=== PATIENT | male | born 1945 | race Caucasian/White ===

== ENCOUNTER 2019-07-20 11:44 | Observation (INO) ==
[2019-07-20] MEDS ORDERED: Isovue-370 500 ML BOTTLE IVP ONE (12:09)
[2019-07-20] MEDS ORDERED: Aspirin 81 MG TAB.CHEW PO ONE (12:10)
[2019-07-20 12:24] LABS: Basophils % 0.4 %; Eosinophils # 0.5 K/mcL (0.0-0.6); Eosinophils % 5.3 %; Hematocrit 43.4 % (37.5-50.1); Hemoglobin 14.4 g/dL (12.9-16.9); Immature Granulocytes % 0.8 % (0-4); Lymphocytes # 2.1 K/mcL (0.6-4.6); Lymphocytes % 22.9 %; Mean Corpuscular HGB Conc 33.2 g/dL (31.6-35.5); Mean Corpuscular Hemoglobin 30.4 pg (28.0-33.3); Mean Corpuscular Volume 91.6 fL (83.0-100.0); Mean Platelet Volume 9.9 fL (9.4-12.4); Monocytes # 0.9 K/mcL (0.0-1.3); Monocytes % 9.4 %; Neutrophils # 5.6 K/mcL (1.6-8.9); Platelet Count 272 K/mcL (140-400); Red Blood Count 4.74 M/mcL (4.19-5.50); Segmented Neutrophils % 61.2 %; White Blood Count 9.1 K/mcL (4.3-11.1)
[2019-07-20 12:26] LABS: INR 1.4; Prothrombin Time 16.1 Seconds (9.4-12.1)
[2019-07-20 12:28] LABS: Activated Partial Thrombo Time 35.9 Seconds (26.0-36.0)
[2019-07-20 12:39] LABS: Bilirubin,Urine Small (Negative); Blood,Urine Negative (Negative); Glucose,Urine (UA) Normal (Normal); Ketones,Urine Trace mg/dL (Negative); Leukocyte Esterase,Urine Trace (Negative); Nitrite,Urine Negative (Negative); Protein,Urine 30 mg/dL (Neg-Trace); Specific Gravity,Urine 1.026 (1.010-1.025); Urobilinogen,Urine Normal (Normal)
[2019-07-20 12:40] LABS: Bacteria,Urine None Seen per hpf (None-Few); RBC,Urine 0-3 per hpf (0-3); Squamous Epithelial Cell,Urine Many per lpf (None-Few)
[2019-07-20 12:43] LABS: Alanine Aminotransferase 13 Units/L (7-52); Albumin 3.9 g/dL (3.5-5.7); Albumin/Globulin Ratio 1.3 (1.1-2.2); Alkaline Phosphatase 104 Units/L (34-104); Aspartate Amino Transferase 16 Units/L (13-39); BUN/Creatinine Ratio 14 (6-26); Bilirubin,Direct 0.2 mg/dL (0.0-0.2); Bilirubin,Indirect 0.4 mg/dL (0.0-1.0); Bilirubin,Total 0.6 mg/dL (0.3-1.0); Blood Urea Nitrogen 19 mg/dL (8-23); Calcium 8.9 mg/dL (8.6-10.3); Carbon Dioxide 27 mEq/L (23-29); Chloride 100 mEq/L (98-107); Globulin 3.1 g/dL (2.4-3.5); Glucose 126 mg/dL (70-105); Lipase 5 Units/L (11-82); Osmolality,Calculated 286 (280-300); Potassium 4.1 mEq/L (3.5-5.1); Sodium 136 mEq/L (136-145); Troponin I < 0.03 ng/mL (< 0.04); eGFR For African Americans > 60 (> 60); eGFR For Non-African Americans 52 (> 60)
[2019-07-20 12:44] LABS: Color,Urine Yellow (Yellow)
[2019-07-20 12:45] LABS: Clarity,Urine Slightly Hazy (Clear)
[2019-07-20 12:52] LABS: Hyaline Casts,Urine Few per lpf (None-Few); Mucus,Urine Moderate (Few)
[2019-07-20] MEDS ORDERED: *HR* OxyCODONE/APAP 5/325 TABLET PO ONE (13:24)
[2019-07-20] MEDS ORDERED: Piperacillin/Tazobactam 3.375 GM in 0.9 % Sodium Chloride Mini Bag 100 ML IVPB ONE (13:49)
[2019-07-20] MEDS ORDERED: Morphine Sulfate 2 MG/ML SYRINGE IVP ONE (15:35)
[2019-07-20] MEDS ORDERED: *HR* FentaNYL (PF) 100 MCG/2 ML VIAL IVP ONE (15:40)
[2019-07-20] MEDS ORDERED: Naloxone 0.4 MG/ML INJ IVP PRN (15:43)
[2019-07-20] MEDS: Cholecalciferol (D-3) 1,000 UNIT (25MCG) TABLET PO SCH (20:05)
[2019-07-20] MEDS ORDERED: traZODone 50 MG TABLET PO SCH (21:00)
[2019-07-20] MEDS ORDERED: rOPINIRole 1 MG TABLET PO SCH (21:00)
[2019-07-20] MEDS ORDERED: ARIPiprazole 2 MG TABLET PO SCH (21:00)
[2019-07-20] MEDS ORDERED: *HR* OxyCODONE Immed Rel 15 MG TABLET PO ONE (21:30)
[2019-07-20] MEDS: Piperacillin/Tazobactam 3.375 GM in 0.9 % Sodium Chloride Mini Bag 100 ML IVPB SCH (23:50)
[2019-07-20] MEDS ORDERED: Acetaminophen IV 500 MG/50 ML INFUS..BTL IVPB ONE (23:54)
[2019-07-21 02:17] LABS: Basophils % 0.5 %; Eosinophils # 0.4 K/mcL (0.0-0.6); Eosinophils % 7.3 %; Lymphocytes # 1.4 K/mcL (0.6-4.6); Lymphocytes % 22.9 %; Mean Corpuscular HGB Conc 32.5 g/dL (31.6-35.5); Mean Corpuscular Hemoglobin 29.8 pg (28.0-33.3); Mean Corpuscular Volume 91.7 fL (83.0-100.0); Mean Platelet Volume 10.6 fL (9.4-12.4); Monocytes # 0.6 K/mcL (0.0-1.3); Monocytes % 10.2 %; Neutrophils # 3.5 K/mcL (1.6-8.9); Platelet Count 258 K/mcL (140-400); Red Blood Count 4.36 M/mcL (4.19-5.50); Red Cell Distribution Width 14.2 % (11.5-14.5); Segmented Neutrophils % 58.1 %; White Blood Count 6.1 K/mcL (4.3-11.1)
[2019-07-21 02:39] LABS: BUN/Creatinine Ratio 17 (6-26); Blood Urea Nitrogen 19 mg/dL (8-23); Calcium 8.5 mg/dL (8.6-10.3); Carbon Dioxide 25 mEq/L (23-29); Chloride 103 mEq/L (98-107); Glucose 89 mg/dL (70-105); Magnesium 2.1 mg/dL (1.6-2.6); Osmolality,Calculated 286 (280-300); Phosphorous 3.5 mg/dL (2.7-4.5); Potassium 3.8 mEq/L (3.5-5.1); Sodium 137 mEq/L (136-145); eGFR For African Americans > 60 (> 60); eGFR For Non-African Americans > 60 (> 60)
[2019-07-21 02:40] LABS: Lactate Dehydrogenase 158 Units/L (140-271); Total Protein 6.3 g/dL (6.4-8.9)
[2019-07-21] MEDS ORDERED: Acetaminophen 325 MG TABLET PO PRN (08:09)
[2019-07-21] MEDS: Piperacillin/Tazobactam 3.375 GM in 0.9 % Sodium Chloride Mini Bag 100 ML IVPB SCH (08:26)
[2019-07-21] MEDS: Cholecalciferol (D-3) 1,000 UNIT (25MCG) TABLET PO SCH (08:27)
[2019-07-21] MEDS ORDERED: Fluticasone Propionate Nasal 50 MCG/SPRAY BOTTLE NS PRN (08:33)
[2019-07-21] MEDS ORDERED: Famotidine 20 MG TABLET PO SCH (09:00)
[2019-07-21] MEDS ORDERED: Finasteride 5 MG TABLET PO SCH (09:00)
[2019-07-21] MEDS ORDERED: Metoprolol XL (24 HR) Succ 25 MG TAB.ER.24H PO SCH (09:00)
[2019-07-21] MEDS ORDERED: Levothyroxine 25 MCG TABLET PO SCH (09:00)
[2019-07-21] MEDS ORDERED: Aspirin Enteric Coated 81 MG Tablet PO SCH (09:00)
[2019-07-21] MEDS ORDERED: BuPROPion SR (12 HR) 100 MG TABLET PO SCH (09:00)
[2019-07-21] MEDS ORDERED: Ipratropium/Albuterol Neb 3 ML IH PRN (10:00)
[2019-07-21] MEDS: *HR* OxyCODONE Immed Rel 15 MG TABLET PO PRN ×2 (10:23→16:14)
[2019-07-21] MEDS: Gabapentin 400 MG CAPSULE PO SCH ×2 (10:24→16:14)
[2019-07-21 12:53] VITALS: BP 109/61
[2019-07-21] MEDS ORDERED: Perflutren Lipid Microsphere 1.3 ML in 0.9 % Sodium Chloride 8.7 ML IVP ONE (14:42)
== END 2019-07-21 17:22 | disposition home or self-care (01) ==
LOC: EMEROOARM 11:44 → 3BNU 11:44 → SUATTDRO 15:40 → 3BNU 16:49
PROVIDERS: ADMIT Family Medicine; ATTEND Student in an Organized Health Care Education/Training Program